=== PATIENT | male | born 1960 | race American Indian/Alaskan Native ===

== ENCOUNTER 2017-12-12 15:57 | Inpatient (IN) | payer OTHER ==
[2017-12-12 17:01] LABS: SQUAMOUS EPITHIAL < 1 /hpf (0-5); URINE BILIRUBIN 1+ (NEGATIVE); URINE BLOOD NEGATIVE (NEGATIVE); URINE CLARITY Hazy (Clear); URINE GLUCOSE (UA) NORMAL (Normal); URINE LEUKOCYTE ESTERASE NEG Leu/uL (Negative); URINE PROTEIN 1+ mg/dL (NEGATIVE)
[2017-12-12 17:07] LABS: URINE COLOR YELLOW (YELLOW)
[2017-12-12 17:13] LABS: BASO % 0.5 % (0.0-2.0); EOS # 0.8 K/uL (0.0-0.7); EOS % 7.9 % (0.0-4.0); HEMOGLOBIN 11.9 g/dL (12.0-18.0); LYMPH # 2.4 K/uL (1.0-4.3); LYMPH % 24.4 % (20.0-40.0); MEAN CORPUSCULAR HEMOGLOBIN 30.8 pg (27.0-31.0); MEAN CORPUSCULAR HGB CONC 34.2 g/dL (33.0-37.0); MEAN PLATELET VOLUME 6.2 fL (7.2-11.7); MONO # 0.9 K/uL (0.0-0.8); MONO % 9.2 % (0.0-10.0); NEUT # 5.7 K/uL (1.8-7.0); NRBC % 0.1 % (0.0-2.0); RBC 3.87 Mil/uL (4.40-5.90); RED CELL DISTRIBUTION WIDTH 12.8 % (11.5-14.5); WHITE BLOOD COUNT 9.8 K/uL (4.8-10.8)
[2017-12-12 17:14] LABS: BARBITURATES, UR NEGATIVE (NEGATIVE); BENZODIAZEPINES, UR NEGATIVE (NEGATIVE); PHENCYCLIDINE, UR NEGATIVE (NEGATIVE)
[2017-12-12 17:16] LABS: OPIATES, UR POSITIVE (NEGATIVE)
--- NOTE | 2017-12-12 17:35 | C.PDOC ---
History Of Present Illness 57 y/o male presents to the ER for detox from heroin. Patient states that he uses 6-8 bags of Heroin IV and his last use was earlier today. Patient denies having suicidal ideation, homicidal ideation, and active physical complaints. Chief Complaint (Nursing): Substance Abuse History Per: Patient History/Exam Limitations: no limitations Past Medical History Reviewed: Historical Data, Nursing Documentation, Vital Signs Vital Signs: Last Vital Signs Temp 98.5 F 12/12/17 16:12 Pulse 110 H 12/12/17 16:12 Resp 18 12/12/17 16:12 BP 131/79 12/12/17 16:12 Pulse Ox 95 12/12/17 17:36 - Medical History PMH: Denies: Diabetes, Hepatitis, HIV, HTN, Seizures, Sexually Transmitted Disease Surgical History: No Surg Hx - [facility] Procedures DRUG DETOXIFICATION (07/31/14) INFLUENZA VACCINATION (07/31/14) Family History: States: No Known Family Hx - Social History Hx Tobacco Use: Yes Hx Alcohol Use: Yes Hx Substance Use: Yes - Immunization History Hx Tetanus Toxoid Vaccination: No Hx Influenza Vaccination: No Hx Pneumococcal Vaccination: No Review Of Systems Except As Marked, All Systems Reviewed And Found Negative. Physical Exam - Physical Exam Appears: No Acute Distress Skin: Normal Color, Warm Head: Atraumatic, Normacephalic Eye(s): bilateral: Normal Inspection Nose: Normal Oral Mucosa: Moist Neck: Supple Cardiovascular: Rhythm Regular Respiratory: Normal Breath Sounds, No Rales, No Rhonchi, No Wheezing Extremity: Other (1 track reno on left upper extremity) Neurological/Psych: Oriented x3, Normal Speech ED Course And Treatment - Laboratory Results Result Diagrams: 12/12/17 17:10 12/12/17 17:10 O2 Sat by Pulse Oximetry: 95 (RA) Pulse Ox Interpretation: Normal Progress Note: Labs and UA ordered. Disposition - Disposition Disposition Time: 17:45 Condition: STABLE Forms: [facility] (Albanian) - Clinical Impression Clinical Impression: Drug abuse, Opioid dependence, Alcohol dependence - Scribe Statement The provider has reviewed the documentation as recorded by the Scribe Kate Armijo Provider Attestation: All medical record entries made by the Scribe were at my direction and personally dictated by me. I have reviewed the chart and agree that the record accurately reflects my personal performance of the history, physical exam, medical decision making, and the department course for this patient. I have also personally directed, reviewed, and agree with the discharge instructions and disposition.
[2017-12-12 18:06] LABS: ALB/GLOB RATIO 0.7 (1.0-2.1); ALBUMIN 3.4 g/dL (3.5-5.0); ALT/SGPT 31 U/L (21-72); AST/SGOT 41 U/L (17-59); BLOOD UREA NITROGEN 11 mg/dL (9-20); CALCIUM 8.7 mg/dl (8.6-10.4); GFR AFRICAN-AMERICAN > 60; GFR NON-AFRICAN AMERICAN > 60
--- NOTE | 2017-12-12 23:24 | PCM.BM ---
<Lacey Riddle - Last Filed: 12/12/17 23:23> Treatment Plan Problems - Problems identified on initial assessmt ETOH DEPENDENCE Date Initiated: 12/12/17 Time Initiated: 23:23 Assessment reference: NA Status: Active OPIATE DEPENDENCE Date Initiated: 12/12/17 Time Initiated: 23:24 Assessment reference: NA Status: Active Treatment assets and liabiliti Patient Assests: ADL independent Patient Liabilities: substance abuse - Milieu Protocol Maintain good personal hygiene: daily Encourage regular showers, daily Remind patient to perform daily oral care, daily Assist patient to perform ADL's Maintain personal safety: every shift Educate patient to report safety concerns to staff, every shift Monitor environment for contraband/sharps Medication safety: Monitor for expected outcome, potential side effects: every shift, Assess barriers to learning: every shift, Assess readiness for medication education: every shift <Rosa Jimenes - Last Filed: 12/14/17 13:30> Family Contact Family involvement: Famliy/SO not involved - Goals for Treatment Patient goals for treatment: Complete detox and transition to AA/NA meetings. Discharge/Continuing Care - Education Needs Education Needs: Patient Medication, Patient Diagnosis/Disease Process, Patient Coping Skills, Patient Anger Management skills, Patient Placement options, Patient Community resources - Discharge Discharge Criteria: No longer exhibiting s/s of withdrawal, Reduction of target symptoms Discharge to:: Home - Treatment Team Participation Patient/Family/SO Statement: 12/14/17 09:23 "I only wanna go to meetings..." Discussed with Family/SO: No Was Patient/Family/SO present at Treatment Team Meeting: Yes <Rosemary Eid - Last Filed: 12/15/17 00:36> - Diagnosis (1) Alcohol dependence Status: Acute Interventions: 12/15/17 00:36 * Assess 7x/week regarding severity of withdrawal * Educate regarding risks, benefits, side effects and alternatives of medications * Use Motivational Interviewing for abstinence * Use CBT for relapse prevention * Medication management for withdrawal symptoms * Encourage medication assisted treatment * (2) Opioid dependence Status: Acute Interventions: 12/15/17 00:36 * Assess 7x/week regarding severity of withdrawal * Educate regarding risks, benefits, side effects and alternatives of medications * Use Motivational Interviewing for abstinence * Use CBT for relapse prevention * Medication management for withdrawal symptoms * Encourage medication assisted treatment *
[2017-12-13] MEDS ORDERED: Aluminum Hydroxide/Magnesium Hydroxide Susp (30 mL) PO PRN (10:12)
[2017-12-13] MEDS: Multiple Vitamins Tab PO SCH (10:49)
--- NOTE | 2017-12-13 13:36 | PCM.PSYCH ---
Initial Psychiatric Evaluation - Initial Psychiatric Evaluation Type of Admission: Voluntary Legal Status: Capacity Chief Complaint (in patient's own words): "I want to get clean." History of Present Illness and Precipitating Events: Patient is seen, chart reviewed, case discussed. This is a 57 year old AAM, who is employed and lives alone, who presented to ED for detox for opiod use disorder. Patients states he was sober from 2013 to 2018. He states he started using heroin again 3-4 weeks ago. He snorts 5 to 6 bags per day. He states he also consumes alcohol, 1/2 pint every 2 days. Patient states he feels okay. he states his left calf hurts; started 2 days ago. He slept on and off last night. Patient states his longest sobriety was for 7 years ([id number]). He stays clean using NA and AA. He has previously received methadone and sublaxone treatment before. Patient was positive for cocaine upon arrival at ED. Patient smokes cigarettes, 1ppd for 20 years. Psych history: denies Medical history: denies Allergies: Iodine, Iodinated Contrast Current Medications: Active Medications Generic Name Dose Route Start Last Admin Trade Name Freq PRN Reason Stop Dose Admin Al Hydrox/Mg Hydrox/Simethicone 30 ml 12/13/17 10:12 Maalox 30 Ml PO TID PRN Indigestion / Heartburn Chlordiazepoxide 25 mg 12/13/17 10:30 Librium PO Q4H PRN Alcohol Withdrawal Clonidine HCl 0.1 mg 12/13/17 10:12 Catapres PO Q8 PRN COWS Score More or Equal to 5 Folic Acid 1 mg 12/13/17 10:30 12/13/17 10:50 Folic Acid PO 1 mg DAILY [facility] Administration Gabapentin 300 mg 12/13/17 18:00 Neurontin PO BID [facility] Guaifenesin 200 mg 12/13/17 10:36 Robitussin PO Q4H PRN Cough and congestion Hydroxyzine HCl 25 mg 12/12/17 20:00 Atarax PO Q6 PRN Anxiety Loperamide HCl 2 mg 12/13/17 10:30 Imodium PO Q8 PRN Diarrhea Multivitamins 1 tab 12/13/17 10:15 12/13/17 10:49 Hexavitamin PO 1 tab DAILY [facility] Administration Ondansetron HCl 4 mg 12/13/17 01:05 Zofran Tab PO Q6 PRN nausea/vomitting Thiamine HCl 100 mg 12/13/17 10:45 12/13/17 10:49 Vitamin B1 Tab PO 100 mg DAILY [facility] Administration Trazodone HCl 100 mg 12/13/17 10:37 Desyrel PO HS PRN Insomnia Past Psychiatric History - Past Psychiatric History Previous Treatment History: None History of ETOH/Drug Use: History of Alcohol Use Disorder History of Opiod Use Disorder History of Family Illness: Denies Pertinent Medical Hx (Current Medical&Sleep Prob, Allergies): Allergies Allergy/AdvReac Type Severity Reaction Status Date / Time Iodinated Contrast- Oral and Allergy Verified 12/12/17 16:16 IV Dye iodine Allergy Verified 12/12/17 16:16 No Known Home Med [No Known Home Med] 07/31/14 Review of Systems - Review of Systems All systems: reviewed and no additional remarkable complaints except - Psychiatric Psychiatric: absent: Depression, Hallucinations, Hopelessness, Suicidal Ideation Mental Status Examination - Personal Presentation Personal Presentation: Looks stated age - Affect Affect: Broad - Motor Activity Motor Activity: Calm - Reliability in Providing Information Reliability in Providing Information: Good - Speech Speech: Organized - Mood Mood: Neutral - Formal Thought Process Formal Thought Process: No Impairment - Obsessions/Compulsions Obsessions: No Compulsions: No - Cognitive Functions Orientation: Person, Place, Situation, Time Sensorium: Alert Attention/Concentration: Attentive Abstract Thinking: [place] - Risk Risk: Withdrawal - Limitations Limitations: Living alone DSM 5 DX - DSM 5 DSM 5 Diagnosis: Alcohol Use Disorder, moderate Opiod Use Disorder, severe Opioid withdrawal - Recommended/Plan of Treatment Treatment Recommendations and Plan of Treatment: Start taper with subutex Gabapentin for augmentation if needed As needed medications All risks, benefits and alternatives of the meds discussed, and the pt agreed and understood. Attend groups and activities Supportive therapy and psychoeducation [place] for abstinence CBT for relapse prevention Encourage MAT Refer to rehab or IOP, and self-help groups Smoking cessation with [place] Nicotine patch if needed 34 min Projected ELOS: 4-5 days - Smoking Cessation Smoking Cessation Initiated: Yes
[2017-12-14] MEDS: Multiple Vitamins Tab PO SCH (09:27)
[2017-12-14] MEDS ORDERED: Pneumococcal 23-Valent Vaccine IM ONE (10:00)
[2017-12-14] MEDS ORDERED: Buprenorphine Hydrochloride 2 mg SL ONE ×2 (10:12→11:30)
--- NOTE | 2017-12-14 14:11 | PCM.PYCHPN ---
Psychiatric Progress Note - Psychiatric Progress Note Patient seen today, length of contact: 15 minutes Patient Chief Complaint: "I couldn't sleep well" Problems Identified/Issues Discussed: The pt is seen, chart reviewed, case discussed with staff. Patient states he is still having withdrawal symptoms. He states he did not sleep at all. Support given, CBT and [place] used briefly No new symptoms reported, improving slowly and needs more time No SEs from medications, risks discussed. After care discussed Mental Status Examination - Cognitive Function Orientation: Person, Place, Situation, Time - Mood Mood: Neutral - Affect Affect: Broad - Formal Thought Process Formal Thought Process: No Impairment - Homicidal Ideation Homicidal Ideation: No Goal/Treatment Plan - Goal/Treatment Plan Progress Toward Problem(s) and Goals/Treatment Plan: Continue medications Support and psychoeducation daily Attend groups and activities daily After care planning by GABRIELA
[2017-12-15] MEDS: guaiFENesin 200 mg/10 ml Syrup UD PO PRN (01:58)
[2017-12-15] MEDS: Buprenorphine Hydrochloride 2 mg SL SCH (09:55)
[2017-12-15] MEDS: Multiple Vitamins Tab PO SCH (09:55)
--- NOTE | 2017-12-15 10:28 | PCM.PYCHPN ---
Psychiatric Progress Note - Psychiatric Progress Note Patient seen today, length of contact: 15 minutes Patient Chief Complaint: "I am improving." Problems Identified/Issues Discussed: The pt is seen, chart reviewed, case discussed with staff. Patient states his sleep has improved. He states he is eating well. Support given, CBT and [place] used briefly No new symptoms reported, improving slowly and needs more time No SEs from medications, risks discussed. After care discussed Medication Change: Yes Medical Record Reviewed: Yes Mental Status Examination - Cognitive Function Orientation: Person, Place, Situation, Time Memory: Intact Attention: WNL Concentration: WNL Association: WNL Fund of Knowledge: WNL - Mood Mood: Neutral - Affect Affect: Broad - Speech Speech: Soft - Formal Thought Process Formal Thought Process: No Impairment - Suicidal Ideation Suicidal Ideation: No - Homicidal Ideation Homicidal Ideation: No Goal/Treatment Plan - Goal/Treatment Plan Need for Continued Stay: Severe depression anxiety, Severe functional impairment Progress Toward Problem(s) and Goals/Treatment Plan: Alcohol Use Disorder, moderate Opiod Use Disorder, severe Opioid withdrawal Continue taper with subutex Gabapentin for augmentation if needed As needed medications All risks, benefits and alternatives of the meds discussed, and the pt agreed and understood. Attend groups and activities Supportive therapy and psychoeducation [place] for abstinence CBT for relapse prevention Encourage MAT Refer to rehab or IOP, and self-help groups Smoking cessation with [place] Nicotine patch if needed
[2017-12-16] MEDS: guaiFENesin 200 mg/10 ml Syrup UD PO PRN (03:25)
[2017-12-16] MEDS: Multiple Vitamins Tab PO SCH (09:35)
[2017-12-16] MEDS: Buprenorphine Hydrochloride 2 mg SL SCH (10:15)
--- NOTE | 2017-12-16 12:21 | PCM.PYCHPN ---
Psychiatric Progress Note - Psychiatric Progress Note Patient seen today, length of contact: 15 minutes Patient Chief Complaint: "I am doing better" Problems Identified/Issues Discussed: The pt is seen, chart reviewed, case discussed with staff. Patient states he slept okay. He is eating well. Support given, CBT and [place] used briefly No new symptoms reported, improving slowly and needs more time No SEs from medications, risks discussed. After care discussed Medication Change: Yes (detox changes daily) Medical Record Reviewed: Yes Mental Status Examination - Cognitive Function Orientation: Person, Place, Situation, Time Memory: Intact Attention: WNL Concentration: WNL Association: WNL Fund of Knowledge: WNL - Mood Mood: Neutral - Affect Affect: Broad - Speech Speech: Appropriate - Formal Thought Process Formal Thought Process: No Impairment - Suicidal Ideation Suicidal Ideation: No - Homicidal Ideation Homicidal Ideation: No Goal/Treatment Plan - Goal/Treatment Plan Need for Continued Stay: Severe depression anxiety, Severe functional impairment Progress Toward Problem(s) and Goals/Treatment Plan: Continue medications Support and psychoeducation daily Attend groups and activities daily After care planning by GABRIELA
[2017-12-17] MEDS: Multiple Vitamins Tab PO SCH (09:30)
[2017-12-17] MEDS: Buprenorphine Hydrochloride 2 mg SL SCH (09:30)
--- NOTE | 2017-12-17 14:51 | PCM.PYCHPN ---
Psychiatric Progress Note - Psychiatric Progress Note Patient seen today, length of contact: 15 minutes Patient Chief Complaint: I'm feeling much better. Problems Identified/Issues Discussed: Patient seen, chart reviewed, case discussed with the staff. Issues related to illness and treatment were discussed with the patient and staff. Reported compliant with treatment with no adverse affects. Tolerating treatment very well. Patient reported feeling better. Aftercare discussed with the patient. At the time of evaluation, patient was awake alert oriented 3, no delusions, no auditory visual hallucinations, no suicidal ideations or homicidal ideations. Medical Problems: None reported Diagnostic Results: Reviewed DSM 5 Symptoms Update: Improving with treatment Medication Change: No Medical Record Reviewed: Yes Mental Status Examination - Cognitive Function Orientation: Person, Place, Situation, Time Memory: Intact Attention: WNL Concentration: WNL Association: WNL Fund of Knowledge: [facility] Decription of patient's judgement and insights: Fair - Mood Mood: Neutral - Affect Affect: Other (Appropriate) - Speech Speech: Appropriate - Formal Thought Process Formal Thought Process: No Impairment Psychotic Thoughts and Behaviors: None - Suicidal Ideation Suicidal Ideation: No - Homicidal Ideation Homicidal Ideation: No Goal/Treatment Plan - Goal/Treatment Plan Need for Continued Stay: Remain at risks for inpatient hospitalization, Discharge may exacerbated symptoms, Severe functional impairment Progress Toward Problem(s) and Goals/Treatment Plan: Patient education Supportive therapy CBT for relapse prevention [place] for abstinence Continue treatment as before Estimated Date of D/C: 12/19/17 - Smoking Cessation Smoking Cessation Initiated: No
[2017-12-18] MEDS: Multiple Vitamins Tab PO SCH (09:46)
[2017-12-18] MEDS: Buprenorphine Hydrochloride 2 mg SL SCH (09:47)
--- NOTE | 2017-12-18 13:19 | PCM.PYCHPN ---
Psychiatric Progress Note - Psychiatric Progress Note Patient seen today, length of contact: 15 minutes Patient Chief Complaint: I'm feeling much better. Problems Identified/Issues Discussed: Patient seen, chart reviewed, case discussed with the staff. Issues related to illness and treatment were discussed with the patient and staff. Reported compliant with treatment with no adverse affects. Tolerating treatment very well. Patient reported feeling better. Calm and cooperative with good eye contact. Mood reported as good. Affect appropriate. Aftercare discussed with the patient. At the time of evaluation, patient was awake alert oriented 3, no delusions, no auditory visual hallucinations, no suicidal ideations or homicidal ideations. Medical Problems: None reported Diagnostic Results: Reviewed DSM 5 Symptoms Update: Improving with treatment Medication Change: No Medical Record Reviewed: Yes Mental Status Examination - Cognitive Function Orientation: Person, Place, Situation, Time Memory: Intact Attention: WNL Concentration: WNL Association: WNL Fund of Knowledge: [facility] Decription of patient's judgement and insights: Fair - Mood Mood: Neutral - Affect Affect: Other (Appropriate) - Speech Speech: Appropriate - Formal Thought Process Formal Thought Process: No Impairment Psychotic Thoughts and Behaviors: None - Suicidal Ideation Suicidal Ideation: No - Homicidal Ideation Homicidal Ideation: No Goal/Treatment Plan - Goal/Treatment Plan Need for Continued Stay: Remain at risks for inpatient hospitalization, Discharge may exacerbated symptoms, Severe functional impairment Progress Toward Problem(s) and Goals/Treatment Plan: Patient education Supportive therapy CBT for relapse prevention [place] for abstinence Continue treatment as before Estimated Date of D/C: 12/19/17 - Smoking Cessation Smoking Cessation Initiated: No
[2017-12-19 06:30] VITALS: O2SAT 97
[2017-12-19 08:38] VITALS: BP 101/57; PULSE 100; RESP 20; TEMP 98.7
[2017-12-19] MEDS: Multiple Vitamins Tab PO SCH (09:28)
--- NOTE | 2017-12-19 09:41 | PCM.PYCHDC ---
Mental Status Examination - Mental Status Examination Orientation: Person Discharge Summary - Discharge Note Consultations:: List each consultation separately and include: 1. Reason for request. 2. Findings. 3. Follow-up Summary of Hospital Course include:: 1. Description of specific treatment plan utilized for patients during their course of treatmen. 2. Summarize the time- course for resolution of acute symptoms and/or regressed behaviors. 3. Describe issues identified and worked on during hospitalization. 4. Describe medication utilized. 5. Describe medical problems identified and treated. 6. Reassessment of suicide risk Summary of Hospital Course: Patient is seen, chart reviewed, case discussed. This is a 57 year old AAM, who is employed and lives alone, who presented to ED for detox for opiod use disorder. Patients states he was sober from 2013 to 2018. He states he started using heroin again 3-4 weeks ago. He snorts 5 to 6 bags per day. He states he also consumes alcohol, 1/2 pint every 2 days. Patient states he feels okay. he states his left calf hurts; started 2 days ago. He slept on and off last night. Patient states his longest sobriety was for 7 years ([id number]). He stays clean using NA and AA. He has previously received methadone and sublaxone treatment before. Patient was positive for cocaine upon arrival at ED. Patient smokes cigarettes, 1ppd for 20 years. Psych history: denies Medical history: denies Allergies: Iodine, Iodinated Contrast He refused formal tx and will only attend AA/NA meetings. - Diagnosis (1) Alcohol dependence Current Visit: Yes Status: Acute (2) Opioid dependence Current Visit: Yes Status: Acute - Final Diagnosis (DSM 5) Condition upon Discharge: STABLE Disposition: HOME/ ROUTINE Follow-up Treatment Plan: Continue medications Support and psychoeducation daily Attend groups and activities daily After care planning by GABRIELA Prescriptions/Medication Reconciliation: Gabapentin [Neurontin] 300 mg PO BID #60 cap hydrOXYzine HCl [Atarax] 25 mg PO BID PRN #60 tab PRN Reason: Anxiety traZODone [Desyrel] 100 mg PO HS PRN #30 tab PRN Reason: Insomnia
== END 2017-12-19 10:15 | disposition home or self-care (01) | DRG 897 ==
LOC: C.ER 15:57 → C.7D 18:23
PROC: HZ2ZZZZ Detoxification Services for Substance Abuse Treatment (ICD-10-PCS; principal; 2017-12-12)
DX: F11.23 Opioid dependence with withdrawal (principal); F17.210 Nicotine dependence, cigarettes, uncomplicated; F14.10 Cocaine abuse, uncomplicated; G47.09 Other insomnia